=== PATIENT | female | born 1955 | race Caucasian/White ===

== ENCOUNTER 2019-01-17 11:47 | Emergency (ER) | payer OTHER, SELFPAY ==
[2019-01-17 11:48] VITALS: BP 160/104; PULSE 100; RESP 18; TEMP 36.4; O2SAT 100; BMI 25.7
--- NOTE | 2019-01-17 12:09 | ED.RN ---
blade from [facility] called. no drug test . only at facilty
[2019-01-17] MEDS: Diphth,Pertuss(Acell),Tet Vac 0.5 ML Vial IM (12:17)
--- NOTE | 2019-01-17 12:17 | ED.VISSUMM ---
- ER Visit Summary Date of Service: 01/17/19 Chief Complaint: Left thumb laceration History of Present Illness: The patient is a 63 F who was dicing tomatoes at work this morning around 0930 hours. She sustained a laceration to the volar surface of the distal left thumb. She put Steri-Strips which did not control bleeding and then coworkers applied new skin. Bleeding was still not controlled so she came to the emergency department. Tetanus is not up-to-date. Physical Examination: Afebrile vital signs stable There is a 1 cm curvilinear irregular laceration to the distal volar surface of the left thumb. Neurovascular intact. No nail damage. Originally there was Steri-Strips as well as skin adhesive around the wound. Normal tendon function. Emergency Department Course and Treatment: Wound was digitally blocked using lidocaine. Wound was washed with Shur-Clens Steri-Strips and adhesive were removed no further foreign bodies noted. 2 simple interrupted Ethilon sutures were placed allowing adequate wound closure. Patient will be discharged home with supportive care instructions for follow-up in 7 to 10 days for suture removal. Tetanus was updated with Adacel Impression: 1. 1 cm left thumb laceration with repair 2. Tetanus update This note was generated with [employer] dictation software. It may contain incorrect words, spelling, and punctuation that were not noted in review of the chart prior to signing ED Disposition - Plan for ED Patient: Disposition: Home or Assisted Living Instructions: LACERATION, Hand Referrals: Clinic,NOW [NON-STAFF] - (in 7-10 days for suture removal )
--- NOTE | 2019-01-17 12:27 | ED.RN ---
blade from [facility] called to say pt does not require testing. [facility] has decided to change their practice.
[2019-01-17 12:40] VITALS: RESP 18
== END 2019-01-17 12:40 | disposition home or self-care (01) ==
LOC: ED 12:27
PROVIDERS: Emergency Provider Emergency Medicine; Family Provider Family Medicine; PCP Family Medicine
DX: S61.012A Laceration without foreign body of left thumb without damage to nail, initial encounter (principal); W26.0XXA Contact with knife, initial encounter; Y93.G1 Activity, food preparation and clean up; Y99.0 Civilian activity done for income or pay
CPT/HCPCS: 12001; 90471; 90715; 99283

== ENCOUNTER → 2019-10-27 14:07 | Outpatient (CLI) | payer OTHER, SELFPAY ==
[2019-01-27 16:40] VITALS: BMI 25.7
--- NOTE | 2019-10-27 14:13 | BI_ITS ---
MAMMOGRAPHY - BILATERAL SCREENING REASON FOR EXAM: Female, 64 years old. Routine annual screening examination. PERTINENT HISTORY: Non-contributory. TECHNIQUE: Digital bilateral breast dada (3D mammographic acquisition) in the CC and MLO projections. 2-D mediolateral oblique (MLO) and craniocaudad (CC) views of both breasts were obtained. CAD: Full Field Digital Mammography with Computer Added Detection was performed. COMPARISON: Comparison is made with prior examination August 06, 2018. FINDINGS: Breast Composition: There are scattered areas of fibroglandular density. There are no dominant masses or suspicious calcifications. Stable benign-appearing bilateral axillary lymph nodes. No other significant abnormalities are identified. There has been no significant change since the prior study. BI/SCREEN MAMM (CAD) W/DADA BILAT IMPRESSION: Stable bilateral screening mammogram. Yearly follow-up mammogram recommended. (A) ASSESSMENT CATEGORY: BIRADS Category 2: Benign. A letter regarding these results will be sent to the patient by the facility within 30 days. Approximately 10% of breast cancers are not detected by mammography. A normal mammogram should not delay biopsy of a clinically suspicious abnormality. [id number] Electronically Signed: Khoi Rivera, at 15:30 EDT , Service support ,
== END ==
PROVIDERS: PCP Family Medicine; Referring Provider Family Medicine; Visit Provider Family Medicine
DX: Z12.31 Encounter for screening mammogram for malignant neoplasm of breast (principal)
CPT/HCPCS: 77063; 77067

== ENCOUNTER → 2020-02-11 08:52 | Outpatient (CLI) | payer OTHER, SELFPAY ==
[2019-01-27 16:40] VITALS: BMI 25.7
[2020-02-11 13:09] LABS: Absolute Lymphocyte Count 1.34 X10^3/uL (0.83-4.51); Basophil# 0.04 X10^3/uL; Hematocrit 41.6 % (37-47); Hemoglobin 12.5 g/dL (12.0-15.0); Lymphocyte # 1.34 X10^3/ul (4.0); Lymphocyte % 33.8 % (19-41); Mean Corpuscular Volume 93.3 fL (81-99); Mean Platelet Vol. 9.9 fl (6.2-12.0); Monocyte# 0.42 X10^3/uL; Monocyte% 10.6 % (0-10); NRBC Flagged by Analyzer 0 % (0-5); Neutrophil # 1.96 X10^3/uL (2.7-7.7); Neutrophil % 49.3 % (47-70); Platelet Count 249 K/mm3 (150-450); RBC Distribution Width CV 13.8 % (11.6-14.6); RBC Distribution Width SD 47.3 fl (35.1-43.9); Red Blood Count 4.46 M/mm3 (4.2-5.4)
[2020-02-11 13:16] LABS: ALB/GLOB Ratio 1.1 RATIO (0.9-2.4); AST(SGOT) 15 U/L (15-37); Alanine Aminotransfer ALT/SGPT 22 U/L (13-56); Albumin, Serum 3.8 g/dL (3.2-5.0); Alkaline Phosphatase 61 U/L (45-117); Anion Gap 7 (5-15); BUN 10 mg/dL (7-18); BUN/Creat Ratio 17.5 RATIO (10-20); Calcium,Total 9.2 mg/dL (8.5-10.1); Chloride 104 mmol/L (98-107); Cholesterol 177 mg/dL (200); Creatinine, Serum 0.57 mg/dL (0.55-1.02); EST Glomerular Filtration Rate 114 mL/min (>60); Est Glom Filt Rate - Afr Amer 137 mL/min (>60); Globulin 3.4 g/dL (2.2-4.2); Glucose 96 mg/dL (74-106); High Density Lipoprotein 65 mg/dL; Potassium 4.5 mmol/L (3.5-5.1); Protein, Total 7.2 g/dL (6.4-8.2); Sodium Level 141 mmol/L (136-145); Triglycerides 155 mg/dL; Very Low Density Lipoprotein 31 mg/dL (5-40)
== END ==
PROVIDERS: PCP Family Medicine; Visit Provider Family Medicine
DX: K21.9 Gastro-esophageal reflux disease without esophagitis (principal); E78.5 Hyperlipidemia, unspecified
CPT/HCPCS: 36415; 80053; 80061; 85025